=== PATIENT | male | born 1985 | race Caucasian/White ===

== ENCOUNTER 2016-09-01 15:59 | Emergency (ER) | payer MEDICAID ==
[~2016-09-01] VITALS: Ht 180.3 cm; Wt 100.0 kg
[~2016-09-01 15:59] MED LIST: ALBU8HFA IH; CLON0.2T PO
[2016-09-01] MEDS ORDERED: BACITRACIN 0.9 GM PACKET OINTMENT TP ONE (19:15)
[2016-09-01] MEDS ORDERED: SODIUM CHLORIDE 0.9% 1,000 ML IV ONE (19:15)
[2016-09-01] MEDS ORDERED: LIDOCAINE HCL BUFFERED 1% 20 ML VIAL INJ ONE (19:15)
[2016-09-01] MEDS ORDERED: POVIDONE-IODINE 10% 15 ML SOLUTION UD TP ONE (19:15)
[2016-09-01 20:11] VITALS: BP 162/104
== END 2016-09-01 20:16 | disposition home or self-care (01) ==
LOC: EMS 16:03
DX: L02.416 Cutaneous abscess of left lower limb (principal); L03.116 Cellulitis of left lower limb; J45.909 Unspecified asthma, uncomplicated; I10 Essential (primary) hypertension; F17.210 Nicotine dependence, cigarettes, uncomplicated
CPT/HCPCS: 10060; 99283; J3490; J7030

== ENCOUNTER 2017-11-12 00:20 | Emergency (ER) | payer MEDICAID ==
[~2017-11-12] VITALS: Ht 180.3 cm; Wt 86.4 kg
[2017-11-12 00:30] VITALS: BP 165/114
== END 2017-11-12 03:05 | disposition left against medical advice (07) ==
LOC: EMS 00:20
DX: M79.604 Pain in right leg (principal); M79.89 Other specified soft tissue disorders; Z53.21 Procedure and treatment not carried out due to patient leaving prior to being seen by health care provider